=== PATIENT | female | born 1945 | race Caucasian/White ===

== ENCOUNTER → 2016-11-12 | Outpatient (CLI) | payer MEDICARE, OTHER ==
--- NOTE | ~2016-11-12 | US85 ---
[facility] A Service of [facility] RADIOLOGY TEXT RESULTS PATIENT: CARROLL CRISOSTOMO LOCATION: CNIV : 47 UNIT #: [id number] AGE: [address]: Ann Burciaga SEX: F ORDER DR: [id number] [facility] [address] [place], [place] [address] [id number] MR#: [id number] Acc #: [id number] NAME: CARROLL CRISOSTOMO : 1945 SEX: F STUDY DATE/TIME: 11/12/2016 15:15 UNIT: CNIV ROOM: STUDY DESCRIPTION: [facility] I[facility] Unilat or [facility] St[facility] Attending Physician: Ann Burciaga A.P.R.N. Referring Physician: Ann Burciaga A.P.R.N. Ordering Physician: Ann Burciaga A.P.R.N. Primary Care Physician: Kody Naik M.D. MEDICAL IMAGING REPORT This report is preliminary unless electronic signature is present EXAM Left lower extremity venous duplex, 11/12/2016 HISTORY Left lower extremity pain, calf pain for 1 week, evaluate for deep vein thrombosis. FINDINGS Fernandez-scale images of the left lower extremity were obtained as well as Doppler waveform spectral analysis and color flow Doppler imaging. There is normal blood flow and compressibility in the left common femoral vein, deep femoral vein, superficial femoral vein and popliteal vein. Normal blood flow and compressibility is seen in the left calf veins. There is a 2.5 cm x 5 mm x 1.4 cm fluid collection in the left popliteal fossa characteristic of a Connor's cyst. IMPRESSION 1. No evidence of deep vein thrombosis in the left lower extremity. 2. 2.5 cm fluid collection in the left popliteal fossa characteristic of a Connro's cyst. Dictated by... Unruly Vega M.D. THIS IS AN ELECTRONICALLY VERIFIED REPORT Unruly Vega M.D. at 11/15/2016 7:35 AM KRT/scotty TD: 11/12/2016 20:27 JOB #: [id number] [facility] A Service of [facility] RADIOLOGY TEXT RESULTS PATIENT: CARROLL CRISOSTOMO [id number] [birth year] UNIT #: [id number] AGE: [address]: Ann Burciaga SEX: F ORDER DR: MEDICAL IMAGING REPORT COPY
== END | disposition home or self-care (01) ==
LOC: CNIV 14:48
DX: R94.8 Abnormal results of function studies of other organs and systems (principal); M79.605 Pain in left leg
CPT/HCPCS: 93970; 93971